=== PATIENT | female | born 1950 | race Caucasian/White ===

== ENCOUNTER 2016-08-12 20:15 | Emergency (ER) | payer OTHER ==
[~2016-08-12 20:15] MED LIST: ALBUTEROL5 INH; C2 PO; COREG3 PO; COUMADIN3 MG PO; JANTOVEN3 MG PO; L20 PO; LEVAQUIN750 MG PO; LEXAPRO10 PO; LEXAPRO20 PO; LORT7 PO; NORCO1 TA1 PO; PCET PO; PR25 PO; PROAIR HFA INH; PROAIR HFA PO; SPIRIVA INH; ULTRAM50 PO; VICOPROFEN 7.5/1 TAB PO; ZANTAC 150 PO; ZANTAC150 MG PO; ZOCOR10 PO
[2016-08-12 21:03] LABS: BASOPHILS 0.3 %; BASOPHILS ABSOLUTE 0.02 10/3/uL (0.0-0.16); EOSINOPHILS 1.5 %; ER CBC TAT 0 Hrs 08 Mins; IMMATURE GRANULOCYTES 0.4 %; IMMATURE GRANULOCYTES ABSOLUTE 0.03 10/3/uL (0.0-0.11); LYMPHOCYTES 41.7 %; LYMPHOCYTES ABSOLUTE 2.82 10/3/uL (0.67-4.30); MEAN CORPUS HGB CONC 33.8 g/dL (32.0-36.0); MEAN CORPUSCULAR HEMOGLOB 31.4 pg (26.0-34.0); MEAN CORPUSCULAR VOLUME 93.1 fL (80-100); MEAN PLATELET VOLUME 9.7 fL (9.2-13.0); MONOCYTES 8.6 %; MONOCYTES ABSOLUTE 0.58 10/3/uL (0.21-1.20); NEUTROPHILS 47.5 %; NEUTROPHILS ABSOLUTE 3.21 10/3/uL (2.02-8.40); RBC DISTRIBUTION WIDTH 15.8 % (12.0-16.0); WHITE BLOOD CELLS 6.8 10/3/uL (4.5-10.5)
[2016-08-12 21:04] LABS: HEMATOCRIT 45.9 % (36.0-48.0); HEMOGLOBIN 15.5 g/dL (12.0-16.0); MANUAL DIFF NO %; PLATELET COUNT 188 10/3/uL (150-400); RED CELL COUNT 4.93 10/6/uL (4.0-5.6)
[2016-08-12 21:18] LABS: A/G RATIO 0.6 (0.7-1.9); ALBUMIN 2.6 G/DL (3.5-5.0); CHLORIDE, SERUM 101 MMOL/L (96-112); CREATININE 1.41 MG/DL (0.55-1.02); GFR AFRICAN AMERICAN 45 ML/MIN (>=60); GFR NON AFRICAN AMERICAN 39 ML/MIN (>=60); GLOBULIN 4.6 G/DL (2.5-4.1); SGOT(AST) 66 U/L (5-40); SGPT(ALT) 42 U/L (5-65); SODIUM, SERUM 142 MMOL/L (135-148); TOTAL BILIRUBIN 1.3 MG/DL (0-1.2); TOTAL PROTEIN 7.2 G/DL (6.0-8.5)
[2016-08-12 21:20] LABS: ALKALINE PHOSPHATASE 143 U/L (45-117); BUN (BLOOD UREA NITROGEN) 10 MG/DL (6-23); CO2 (CARBON DIOXIDE) 33 MMOL/L (24-34); GLUCOSE, SERUM 157 MG/DL (60-99); POTASSIUM, SERUM 2.9 MMOL/L (3.5-5.3)
== END 2016-08-13 07:00 | disposition left against medical advice (07) ==
LOC: ER 20:15
PROVIDERS: Emergency Medicine
DX: R52 Pain, unspecified (principal); Z53.21 Procedure and treatment not carried out due to patient leaving prior to being seen by health care provider
CPT/HCPCS: 80053; 85025; 87040; 93005